=== PATIENT | male | born 1985 | race Caucasian/White ===

== ENCOUNTER 2022-07-30 08:54 | Emergency (ER) | payer SELFPAY ==
[~2022-07-30] VITALS: Ht 180.3 cm; Wt 114.1 kg
[2022-07-30 09:12] VITALS: BP 143/97
[2022-07-30] MEDS ORDERED: IBUP-1986 PO (10:01)
== END 2022-07-30 10:15 | disposition home or self-care (01) ==
LOC: ER 08:54
DX: M25.512 Pain in left shoulder (principal)
CPT/HCPCS: 73030; 99283